=== PATIENT | male | born 1940 | race Caucasian/White ===

== ENCOUNTER 2024-06-01 20:17 | Emergency (ER) | payer MEDICARE, OTHER, SELFPAY ==
--- NOTE | 2024-06-01 20:18 | XR_ITS ---
Examination: CT brain head without contrast. 2-D sagittal coronal reconstructions Date and time of exam:June 01, 2026 and 2126 hrs. Indications: Ground-level fall out of a wheelchair today with injury to the head CTDI: vol (mGy):53.7 DLP: (mGycm):1108 Technique: Multiple CT axial sections of the brain have been obtained, 5 mm slice thickness. Contrast has not been administered. 2-D sagittal, coronal reconstructions have been obtained Low dose protocols were performed. One or more of the following dose reduction techniques were used; automated exposure control, adjustment of the mA and/or KV according to patient size, use of iterative reconstruction technique. Findings: No significant ventricular enlargement. 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 No mass effect or midline shift Basal cisterns are not remarkable. Fourth ventricle is midline. Cranial vault intact. Impression: Negative for acute hemorrhage, mass effect or midline shift
--- NOTE | 2024-06-01 20:19 | XR_ITS ---
Examination: Ribs, right, with PA chest, 5 views Technique: Chest PA, RIBS AP, RPO, LPO, AP coned lower ribs 5 views Exam date and time: June 01, 2024 0910 hrs. Indications: Patient fell 3 days ago with injury to the right chest, right rib pain chest pain today Findings: Mild prominence of ventricle Scarring in the upper lung zones including pleural scarring No pneumothorax Moderate osteopenia No acute rib fractures Impression: No pneumothorax No acute rib fractures
--- NOTE | 2024-06-01 20:19 | XR_ITS ---
Examination: CT cervical spine without contrast 2-D sagittal reconstructions 2-D coronal reconstructions 3-D reconstructions. Exam date and time:June 01, 2024 2127 hrs. Indications: Ground-level fall today with injury to the neck, neck pain CTDI:vol (mGy) 8.02 DLP: (mGycm) 174 Technique: Multiple 2 mm axial sections of the cervical spine have been obtained. The coronal and sagittal reconstructions have been obtained. 3-D reconstructions have been obtained. Low dose protocols were performed. One or more of the following dose reduction techniques were used; automated exposure control, adjustment of the mA and/or KV according to patient size, use of iterative reconstruction technique. Findings: Axial sections demonstrate intact base of the skull. C1 exhibit satisfactory relationship to the odontoid. No acute cervical vertebral body fracture seen. Alignment posterior spinous processes satisfactory. Impression: No acute cervical fracture.
[2024-06-01 20:20] VITALS: BP 179/77; PULSE 88; RESP 18; TEMP 36.8; O2SAT 96; BMI 26.1
[2024-06-01 20:21] VITALS: PULSE 95; RESP 20; O2SAT 97
--- NOTE | 2024-06-01 20:24 | PD.EDADULT ---
ED General RME/HPI General Chief complaint: Head Injury Stated complaint: RIGHT SIDED RIB PAIN Time Seen by Provider: 06/01/24 20:18 Arrival date/time: 06/01/24 20:17 CC: Right sided chest wall pain HPI patient fell 2 days ago while sitting in his wheelchair falling backwards after going off concrete in the grass. The patient did not think much of it denies any loss of consciousness. But today when he shifted his torso laterally he felt immediate severe pain with a pop sensation in his right chest. The pain subsided and as long as the patient is not moving there is no pain. Patient is awake alert oriented denies any blurred vision seeing spots altered mental status. Related Data Home Medications ?Medication ?Instructions ?Recorded ?Confirmed amlodipine 5 mg tablet 5 mg PO QDAY 09/12/18 09/12/18 aspirin 81 mg tablet,delayed 162 mg PO QDAY 09/12/18 09/12/18 release (Aspir-) esomeprazole magnesium 20 mg 20 mg PO QDAY 09/12/18 09/12/18 tablet,delayed release lisinopril 40 mg tablet 40 mg PO QDAY 09/12/18 09/12/18 metoprolol succinate 100 mg 100 mg PO QDAY 09/12/18 09/12/18 capsule sprinkle, ext. release 24 hr Allergies Allergy/AdvReac Type Severity Reaction Status Date / Time No Known Allergies Allergy Verified 06/01/24 20:21 Review of Systems Review of Systems Narrative Review of Systems: GEN: No fever, no chills, no weight loss EYES: No discharge, no visual changes, no pain HEENT: No ear pain, no congestion, no sore throat PULM: No shortness of breath, no cough, no congestion CV: + chest pain, no dyspnea on exertion, no palpitations GI: No nausea, no vomiting, no diarrhea, no pain, no constipation : No frequency, no urgency, no dysuria MUSC/SKEL: No joint pain, no back pain SKIN: No rash PSYCH: No hallucinations, no depression HEME/LYMPH: No easy bleeding or bruising tendencies NEURO: No weakness, no headache Past Medical History Past Medical History NEUROLOGIC: Positive Cerebrovascular Accident CARDIAC: Positive Hypertension; Negative Congestive Heart Failure RESPIRATORY: Negative Chronic Obstructive Pulmonary Disease (COPD) GENITOURINARY: Negative Renal Disease ENT: Positive Cataracts ENDOCRINE: Negative Diabetes Mellitus Type 1 or Diabetes Mellitus Type 2 Family History FAMILY HISTORY: Negative Family Cardiac Disorders Social History SMOKING STATUS: Never smoker SUBSTANCE USE: does not use ED Exam Narrative Physical exam: [General: Not in any acute distress Head normocephalic HEENT: Within acceptable limits Neck is supple nontender Chest equal chest rise, site-specific chest wall tenderness to right mid axillary line ribs 4 through 5. No asymmetric respiratory breathing no shortness of breath. Respiratory: Clear to auscultation no wheezes crackles or rubs CV: Rate rhythm is regular no murmurs rubs or clicks Abdomen is distended secondary to body habitus soft nontender no masses positive bowel sounds all 4 quadrants Back: No CVA tenderness no spinous process tenderness from cervical spine thoracic and lumbar spine Skin: Intact no petechiae rash induration ulceration or crepitus Extremities: Moving all extremity against resistance cap refill less than 2 seconds neurosensory intact Neuro: Awake alert oriented x3 Glascow coma 15 no focal deficits] Course Quality Measures VTE prophylaxis Orders Category Date Time Status CT cervical spine wo con Stat Exams 06/01/24 20:[address] head/brain wo con Stat Exams 06/01/24 20:18 Completed XR ribs RT min 3V w CXR1V Stat Exams 06/01/24 20:19 Completed CBC Stat Lab 06/01/24 21:11 Completed CMP [Comprehensive Metabolic Panel] Stat Lab 06/01/24 21:11 Completed PT [Prothrombin Time with INR] Stat Lab 06/01/24 21:11 Completed PTT [Partial Thromboplastin Time] Stat Lab 06/01/24 21:11 Completed Vital Signs Vital signs: Vital Signs Temperature 98.3 F 06/01/24 20:20 Pulse Rate 88 06/01/24 20:20 Respiratory Rate 18 06/01/24 20:20 Blood Pressure 179/77 H 06/01/24 20:20 Pulse Oximetry (%) 96 06/01/24 20:20 Oxygen Delivery Method Room Air 06/01/24 20:20 [facility] Patient data External records reviewed:: [facility] previous records Clinical information provided by:: patient and EMS Social determinants that could affect healthcare access:: housing Patient has the following chronic illnesses:: Hypertension hyperlipidemia How is presenting disease/condition affected by chronic disease/condition?: uneffected by Evaluation data The following diagnostics were reviewed and interpreted by me:: lab results and radiology exam(s) Lab and/or radiology exams considered but not ordered:: CT head and C-spine is interpreted by me read by radiology as negative for any acute finding Rib x-rays are negative for any acute fracture malalignment or dislocation as interpreted me read by radiology CBC shows a mild leukocytosis of 13.3 no anemia or thrombocytopenia Coags within acceptable limits CMP shows no significant electrolyte imbalances glucose of 150 no transaminitis or T. bili elevation Interpretation Summary: I suspect the patient has a small rib fracture that is not detected. Or as pulled muscle in the intercostals but either way there is no acute finding requires immediate intervention. Medications Medications considered but not ordered:: None Medication administrations:: None Consultations Consultation(s) initiated? (list below): No Diagnosis Differential Diagnosis ED Complaint MDM: Neck fracture closed head injury rib fracture Most likely diagnosis given after review of the tests above:: Chest wall contusion Admission Indicated Admission indicated?: not indicated Explain why admission is indicated or not indicated:: Stable for discharge Admission Request Was there a request for admission?: No Disposition Plan Disposition Plan: Discharge Discharge Attestation Discharge Attestation: The patient and all family members were given an opportunity to ask questions and understood the discharge instructions. Discharge instructions specifically effects, indications for sooner follow up or return to the emergency department, and the expected course of current diagnosis. Patient condition: Stable Medical Decision Making Differential Diagnosis Differential Diagnosis: Neck fracture closed head injury rib fracture Lab Data 06/01/24 21:11 06/01/24 21:11 Labs: Lab Results 06/01/24 Range/Units 21:11 WBC 13.6 H (3.8-10.6) Thou/mm3 RBC 4.25 L (4.50-5.90) Miln/mm3 Hgb 13.6 (13.5-16.0) g/dL Hct 39.4 L (41.0-53.0) % MCV 93 (80-100) fL MCH 32.0 (25.0-35.0) pg MCHC 34.5 (31.0-37.0) g/dl RDW Std Deviation 46.7 H (35.1-43.9) fL Plt Count 319 (140-440) Thou/mm3 Neut % (Auto) 78 (37-80) % Lymph % (Auto) 7 L (10-50) % Roane % (Auto) 11 (0-12) % Eos % (Auto) 3 (0-10) % Baso % (Auto) 1 (0-2.5) % Neut # (Auto) 10.6 H (1.8-7.7) Thou/mm3 Lymph # (Auto) 0.9 L (1.0-4.8) Thou/mm3 Roane # (Auto) 1.4 H (0.0-0.8) Thou/mm3 Eos # (Auto) 0.4 (0.0-0.5) Thou/mm3 Baso # (Auto) 0.1 (0.0-0.2) Thou/mm3 Immature Gran # (Auto) 0.15 H (0.00-0.00) Thou/mm3 Absolute Nucleated RBC 0.00 (0.00-0.00) Thou/mm3 Immature Gran % 1 H (0-0) % Nucleated RBC % 0 (0) /100 WBC PT 11.4 (9.0-12.2) Seconds INR 1.0 (0.9-1.3) APTT 29.1 (22.0-36.0) Seconds Sodium 134 L (136-145) mMol/L Potassium 4.3 (3.4-5.1) mMol/L Chloride 101 (98-107) mMol/L Carbon Dioxide 24.1 (20.0-31.0) mMol/L Anion Gap 9 (7-16) BUN 13 (9-23) mg/dL Creatinine 1.1 (0.6-1.3) mg/dL Estim Creat Clear Calc 41.1 L (>60) mL/min eGFR > 60 (60 - ) See Note BUN/Creatinine Ratio 12 (12-20) Ratio Glucose 150 H (74-106) mg/dL Calculated Osmolality 271 L (275-295) Calcium 9.8 (8.3-10.6) mg/dL Corrected Calcium 9.8 (8.5-10.1) mg/dL Total Bilirubin 0.3 (0.3-1.2) mg/dL AST 17 (0-34) U/L ALT 19 (10-49) U/L Alkaline Phosphatase 120 H (46-116) U/L Total Protein 6.6 (5.7-8.2) gm/dL Albumin 4.3 (3.4-4.8) gm/dL Globulin 2.3 (2.3-3.5) gm/dL Albumin/Globulin Ratio 1.9 (1.2-2.2) Discharge Plan Plan Patient Disposition: HOME (Self Care) Patient condition on transfer: Stable Prescriptions/Referrals Prescriptions/Med Rec: No Action amlodipine 5 mg Tablet 5 mg PO QDAY aspirin [Aspir-81] 81 mg Tablet,Delayed Release (Dr/Ec) 162 mg PO QDAY lisinopril 40 mg Tablet 40 mg PO QDAY esomeprazole magnesium 20 mg Tablet,Delayed Release (Dr/Ec) 20 mg PO QDAY metoprolol succinate 100 mg Capsule,Sprinkle,Er 24hr 100 mg PO QDAY Referrals: Teresa Hunt [facility]DER [Primary Care Provider] - In 1 week Problem List Clinical Impression: Chest wall pain Patient/Caregiver Discharge Instructions Education Materials: ED Chest Pain, Uncertain Cause, ED Muscle Strain, Abdomen Print Language: Sudanese Stand Alone Forms: Tamika Award Info., Patient Portal Info Letter PA/SEN Supervising Physician PA/SEN Supervising Physician: Michael David ENP
[2024-06-01 21:33] LABS: Basophils # (Auto) 0.1 Thou/mm3 (0.0-0.2); Basophils % (Auto) 1 % (0-2.5); Eosinophils # (Auto) 0.4 Thou/mm3 (0.0-0.5); Eosinophils % (Auto) 3 % (0-10); Hematocrit 39.4 % (41.0-53.0); Hemoglobin 13.6 g/dL (13.5-16.0); Immature Granulocytes % (Auto) 1 % (0-0); Immature Granulocytes Auto 0.15 Thou/mm3 (0.00-0.00); Lymphocytes # (Auto) 0.9 Thou/mm3 (1.0-4.8); Lymphocytes % (Auto) 7 % (10-50); Mean Corpuscular HGB Conc 34.5 g/dl (31.0-37.0); Mean Corpuscular Volume 93 fL (80-100); Monocytes # (Auto) 1.4 Thou/mm3 (0.0-0.8); Monocytes % (Auto) 11 % (0-12); Neutrophils # (Auto) 10.6 Thou/mm3 (1.8-7.7); Neutrophils % (Auto) 78 % (37-80); Nucleated Red Blood Cell % 0 /100 WBC (0); Platelet Count 319 Thou/mm3 (140-440); RDW Standard Deviation 46.7 fL (35.1-43.9); Red Blood Count 4.25 Miln/mm3 (4.50-5.90); White Blood Count 13.6 Thou/mm3 (3.8-10.6)
[2024-06-01 21:47] LABS: Prothrombin Time 11.4 Seconds (9.0-12.2)
[2024-06-01 21:48] LABS: Partial Thromboplastin Time 29.1 Seconds (22.0-36.0)
[2024-06-01 22:09] LABS: Alanine Aminotransferase 19 U/L (10-49); Albumin, Serum 4.3 gm/dL (3.4-4.8); Albumin/Globulin Ratio 1.9 (1.2-2.2); Alkaline Phosphatase 120 U/L (46-116); Anion Gap 9 (7-16); Aspartate Amino Transferase 17 U/L (0-34); BUN/Creatinine Ratio 12 Ratio (12-20); Bilirubin,Total 0.3 mg/dL (0.3-1.2); Blood Urea Nitrogen 13 mg/dL (9-23); Calcium 9.8 mg/dL (8.3-10.6); Calcium (Corrected) 9.8 mg/dL (8.5-10.1); Carbon Dioxide 24.1 mMol/L (20.0-31.0); Chloride 101 mMol/L (98-107); Creatinine (Component) 1.1 mg/dL (0.6-1.3); Estimated Creatinine Clearance 41.1 mL/min (>60); Globulin 2.3 gm/dL (2.3-3.5); Glucose 150 mg/dL (74-106); Osmolality,Calculated 271 (275-295); Potassium 4.3 mMol/L (3.4-5.1); Sodium 134 mMol/L (136-145); Total Protein 6.6 gm/dL (5.7-8.2); eGFR > 60 See Note
[2024-06-01 22:10] VITALS: BP 140/73; PULSE 80; RESP 17; TEMP 36.7; O2SAT 99
== END 2024-06-02 01:08 | disposition home or self-care (01) ==
PROVIDERS: Registered Nurse General Practice; Emergency Provider Emergency Medicine; PCP Nurse Practitioner Family
DX: R07.89 Other chest pain (principal); M54.2 Cervicalgia; S09.90XA Unspecified injury of head, initial encounter; W05.0XXA Fall from non-moving wheelchair, initial encounter
CPT/HCPCS: 36415; 70450; 71101; 72125; 80053; 85025; 85610; 85730; 99284

== ENCOUNTER → 2025-01-03 | Outpatient (CLI) | payer MEDICARE, OTHER, SELFPAY ==
[2025-01-03 09:09] LABS: Basophils # (Auto) 0.1 Thou/mm3 (0.0-0.2); Basophils % (Auto) 1 % (0-2.5); Eosinophils # (Auto) 0.6 Thou/mm3 (0.0-0.5); Eosinophils % (Auto) 5 % (0-10); Hematocrit 38.1 % (41.0-53.0); Hemoglobin 12.8 g/dL (13.5-16.0); Immature Granulocytes Auto 0.17 Thou/mm3 (0.00-0.00); Lymphocytes # (Auto) 1.5 Thou/mm3 (1.0-4.8); Lymphocytes % (Auto) 12 % (10-50); Mean Corpuscular HGB Conc 33.6 g/dl (31.0-37.0); Mean Corpuscular Hemoglobin 32.5 pg (25.0-35.0); Mean Corpuscular Volume 97 fL (80-100); Monocytes # (Auto) 1.5 Thou/mm3 (0.0-0.8); Monocytes % (Auto) 12 % (0-12); Neutrophils # (Auto) 9.2 Thou/mm3 (1.8-7.7); Neutrophils % (Auto) 70 % (37-80); Nucleated Red Blood Cell # 0.00 Thou/mm3 (0.00-0.00); Nucleated Red Blood Cell % 0 /100 WBC (0); Platelet Count 335 Thou/mm3 (140-440); RDW Standard Deviation 48.3 fL (35.1-43.9); Red Blood Count 3.94 Miln/mm3 (4.50-5.90); White Blood Count 13.2 Thou/mm3 (3.8-10.6)
[2025-01-03 09:31] LABS: Vitamin B12 617 pg/mL (211-911)
[2025-01-03 09:35] LABS: Iron 75 mcg/dL (65-175)
[2025-01-03 10:06] LABS: Alanine Aminotransferase 11 U/L (10-49); Albumin, Serum 4.3 gm/dL (3.4-4.8); Albumin/Globulin Ratio 2.3 (1.2-2.2); Anion Gap 8 (7-16); Aspartate Amino Transferase 14 U/L (0-34); BUN/Creatinine Ratio 9 Ratio (12-20); Bilirubin,Total 0.3 mg/dL (0.3-1.2); Blood Urea Nitrogen 10 mg/dL (9-23); Calcium 10.4 mg/dL (8.3-10.6); Calcium (Corrected) 10.4 mg/dL (8.5-10.1); Carbon Dioxide 24.1 mMol/L (20.0-31.0); Cardiac Risk Estimate 2.1 RATIO (4.0-6.7); Chloride 100 mMol/L (98-107); Cholesterol 92 mg/dL (132-200); Creatinine (Component) 1.1 mg/dL (0.6-1.3); Globulin 1.9 gm/dL (2.3-3.5); Glucose 86 mg/dL (74-106); HDL Cholesterol 44 mg/dL (40-60); LDL Cholesterol,Calculated 28 mg/dL (0-130); Osmolality,Calculated 262 (275-295); Potassium 4.5 mMol/L (3.4-5.1); Sodium 132 mMol/L (136-145); Thyroid Stimulating Hormone 1.18 uIU/mL (0.55-4.78); Total Protein 6.2 gm/dL (5.7-8.2); Triglycerides 100 mg/dL (30-150); eGFR > 60 See Note
[2025-01-03 10:52] LABS: Alkaline Phosphatase 125 U/L (46-116)
== END | disposition home or self-care (01) ==
LOC: COPL 08:32
PROVIDERS: PCP Family Medicine; Referring Provider Nurse Practitioner Family; Visit Provider Nurse Practitioner Family
DX: Z00.00 Encounter for general adult medical examination without abnormal findings (principal); D51.0 Vitamin B12 deficiency anemia due to intrinsic factor deficiency; E78.2 Mixed hyperlipidemia
CPT/HCPCS: 36415; 80053; 80061; 82607; 83540; 84443; 85025